=== PATIENT | female | born 1945 | race Hispanic/Latino ===

== ENCOUNTER 2018-10-14 12:14 | Emergency (ER) | payer MEDICARE ==
--- NOTE | 2018-10-14 13:55 | XRay Report ---
LEFT WRIST, 3 views: HISTORY: Fall with deformity. Osteopenia. A comminuted, impacted fracture of the distal radius with intra-articular extension is identified. There is also a transverse fracture at the base of the ulnar styloid. The carpal bones are grossly intact. Moderate degenerative changes are noted. There is diffuse soft tissue swelling. IMPRESSION: Fractures of the distal radius and ulnar styloid as described. Osteopenia. Osteoarthritis.
--- NOTE | 2018-10-14 14:36 | Emergency Department Report ---
ED Upper Extremity Inj HPI - General Chief Complaint: Extremity Injury, Upper Stated Complaint: LFT WRIST POSS BROKEN/PAIN Time Seen by Provider: 10/14/18 12:32 Source: patient Mode of arrival: Ambulatory Limitations: No Limitations - History of Present Illness Initial Comments: 73-year-old female with past medical history of osteoporosis, elevated chol esterol, and thyroid disease presents to the Hospital with complaints of left wrist injury after trip and fall. Patient is right-hand dominant. Patient denies any other injury including head trauma or LOC. She complains of moderate to severe pain of left wrist with deformity. Pain is worse with movement and improves with rest. Patient is of a history of right wrist fracture in her 50s requiring surgical repair. PMD: Dr. Marco Dow - Related Data Previous Rx's Medication Instructions Recorded Last Taken Type HYDROcodone/APAP 5-325 [[place] 1 each PO Q6HR PRN #15 tablet 10/14/18 Unknown Rx 5/325] Ibuprofen [Motrin] 600 mg PO Q8H PRN #30 tablet 10/14/18 Unknown Rx Allergies Allergy/AdvReac Type Severity Reaction Status Date / Time Iodinated Contrast- Oral and AdvReac Itching,HIV Unverified 09/29/16 13:51 IV Dye ES [Iodinated Contrast Media - IV Dye] ED Review of Systems ROS: Stated complaint: LFT WRIST POSS BROKEN/PAIN Other details as noted in HPI Comment: All other systems reviewed and negative ED Past Medical Hx - Past Medical History Previous Medical History?: Yes Additional medical history: high cholesterol level, thyroid problem - Surgical History Past Surgical History?: Yes Additional Surgical History: bladder surgery, appendectomy - Social History Smoking Status: Never Smoker Substance Use Type: None - Medications Home Medications: Home Medications Medication Instructions Recorded Confirmed Last Taken Type HYDROcodone/APAP 5-325 [[place] 1 each PO Q6HR PRN #15 tablet 10/14/18 Unknown Rx 5/325] Ibuprofen [Motrin] 600 mg PO Q8H PRN #30 tablet 10/14/18 Unknown Rx ED Physical Exam - General Limitations: No Limitations - Other Other exam information: General: No limitations, patient is alert in no acute distress Head exam: Atraumatic, normocephalic Eyes exam: Normal appearance, ENT: Moist mucous membrane, normal oropharynx Neck exam: Normal inspection, full range of motion, no meningismus nontender Respiratory exam: Clear to auscultation bilateral, no wheezes, rales, crackles Cardiovascular: Normal rate and rhythm, normal heart sounds Abdomen: Soft, nondistended, and nontender, with normal bowel sounds, no rebound, or guarding Extremity: Left wrist deformity with pain to palpation diffusely. 2+ radial pulse. Sensation to fingers and movement intact. Back: Normal Inspection, full range of motion, no tenderness Neurologic: Alert, oriented x3, cranial nerves intact, no motor or sensory deficit Psychiatric: normal affect, normal mood Skin: Warm, dry, intact ED Course Vital Signs 10/14/18 10/14/18 12:18 12:26 Temperature 97.6 F 97.5 F L Pulse Rate 91 H 84 Respiratory 20 18 Rate Blood Pressure 164/65 Blood Pressure 164/98 [Right] O2 Sat by Pulse 98 100 Oximetry - Reevaluation(s) Reevaluation #1: 10/14/18 15:11 Patient declined offer for pain medication during her ED visit - Consultations Consultation #1: 10/14/18 15:[address] Mendoza orthopedic surgeon certified medication technician several times several, no response. Fracture is not displaced and therefore splinted in position and follow-up will be encouraged. - Orthopedic Splinting/Casting Injury #1 Side: left Upper Extremity Injury Location: wrist Upper Extremity Immobilizer: sugartong splint Additional Comments: placed by tech and inspected by me ED Medical Decision Making - Radiology Data Radiology results: report reviewed LEFT WRIST, 3 views: HISTORY: Fall with deformity. Osteopenia. A comminuted, impacted fracture of the distal radius with intra-articular extension is identified. There is also a transverse fracture at the base of the ulnar styloid. The carpal bones are grossly intact. Moderate degenerative changes are noted. There is diffuse soft tissue swelling. IMPRESSION: Fractures of the distal radius and ulnar styloid as described. Osteopenia. Osteoarthritis. - Medical Decision Making Tech place a left sugar tong splint to immobilize the distal forearm. Inspected by me and deemed effective. Patient placed in a sling for support. Outpatient follow-up with orthopedic doctor within 3-5 days encouraged. Patient denies a history of hypertension. BP likely elevated secondary to pain. Follow-up encouraged - Differential Diagnosis fracture, contusion, sprain Critical Care Time: No Critical care attestation.: If time is entered above; I have spent that time in minutes in the direct care of this critically ill patient, excluding procedure time. ED Disposition Clinical Impression: Left wrist fracture, Elevated blood pressure reading Disposition: TO HOME OR SELFCARE Is pt being admited?: No Does the pt Need Aspirin: No Condition: Stable Instructions: Wrist Fracture in Adults (ED), How to Take a Blood Pressure (ED) Additional Instructions: Take the medication as prescribed. Follow up with orthopedic doctor provided with orthopedic doctor of your choice.. Return if symptoms worsen as indicated by your discharge instructions. Follow up with your primary care doctor for blood pressure recheck. Prescriptions: HYDROcodone/APAP 5-325 [[place] 5/325] 1 each PO Q6HR PRN #15 tablet PRN Reason: Pain , Severe (7-10) Ibuprofen [Motrin] 600 mg PO Q8H PRN #30 tablet PRN Reason: Pain, Moderate (4-6) Referrals: EUSEBIA MENDOZA MD [Staff Physician] - 3-5 Days (Orthopedic doctor) MARCO DOW MD [Staff Physician] - 3-5 Days Time of Disposition: 15:09
[2018-10-14 15:19] VITALS: BP 151/76
== END 2018-10-14 15:24 | disposition home or self-care (01) ==
LOC: ED 12:14
DX: S52.502A Unspecified fracture of the lower end of left radius, initial encounter for closed fracture (principal); S52.612A Displaced fracture of left ulna styloid process, initial encounter for closed fracture; E78.00 Pure hypercholesterolemia, unspecified; Z90.49 Acquired absence of other specified parts of digestive tract; Z91.041 Radiographic dye allergy status; W01.0XXA Fall on same level from slipping, tripping and stumbling without subsequent striking against object, initial encounter; Y93.89 Activity, other specified; Y92.89 Other specified places as the place of occurrence of the external cause; Y99.8 Other external cause status
CPT/HCPCS: 99283